=== PATIENT | female | born 1965 | race Caucasian/White ===

== ENCOUNTER 2020-09-25 17:06 | Emergency (ER) | payer BC, OTHER ==
[2020-09-25] MEDS ORDERED: HYDROCODONE/APAP 7.5/325 MG TAB ONE (18:22)
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
[2020-09-25 19:36] VITALS: O2SAT 100
[2020-09-25 19:38] VITALS: BP 116/64
[2020-09-25 19:44] VITALS: TEMP 97.7
== END 2020-09-25 19:19 | disposition home or self-care (01) ==
LOC: ER 17:06
DX: R51.9 Headache, unspecified (principal); M54.2 Cervicalgia; M25.552 Pain in left hip; V43.62XA Car passenger injured in collision with other type car in traffic accident, initial encounter; F17.210 Nicotine dependence, cigarettes, uncomplicated
CPT/HCPCS: 70450; 71250; 72125; 99284

== ENCOUNTER 2021-05-08 17:15 | Emergency (ER) | payer OTHER ==
[2021-05-08 18:51] LABS: Absolute Lymphocytes (CBC) 2.6 K/uL (0.7-4.9); Hematocrit 38.4 % (36.0-45.0); Lymphocytes % 32.4 % (15.3-44.8); MPV 8.3 fL (7.6-11.3); RBC Red Blood Cell Count 4.12 M/uL (3.86-4.86)
[2021-05-08 20:10] LABS: ALT/SGPT 22 U/L (12-78); AST/SGOT 13 U/L (15-37); Albumin 3.8 g/dL (3.4-5.0); Alkaline Phosphatase 69 U/L (45-117); BUN Blood Urea Nitrogen 13 mg/dL (7-18); Bicarbonate 24 mmol/L (21-32); Bilirubin Direct < 0.1 mg/dL (0-0.2); Bilirubin Total 0.5 mg/dL (0.2-1.0); Glucose Level 113 mg/dL (74-106); Lipase 127 U/L (73-393); Potassium 3.6 mmol/L (3.5-5.1); Protein, Total 7.1 g/dL (6.4-8.2); Sodium Level 139 mmol/L (136-145)
--- NOTE | 2021-05-08 20:48 | RAD REPORT ---
EXAM DESCRIPTION: CT - Abdomen Pelvis W Contrast - 05/08/2021 8:24 pm CLINICAL HISTORY: Abdominal pain COMPARISON: 2017 TECHNIQUE: Computed axial tomography of the abdomen pelvis was obtained. 100 cc Isovue-300 was admin istered intravenously. Oral contrast was not requested which limits evaluation of bowel. All CT scans are performed using dose optimization technique as appropriate and may include automated exposure control or mA/KV adjustment according to patient size. FINDINGS: The liver, spleen, pancreas, adrenal and left kidney appear unremarkable. Small right renal cyst. There is no evidence of diverticulitis. Normal appendix. No adnexal mass IMPRESSION: No acute abnormality is displayed.
--- NOTE | 2021-05-08 20:54 | EDPHYS ---
Physician Documentation [facility] Name: Gris Salgado Age: 55 yrs Sex: Female : 1965 Arrival Date: 05/08/2021 Time: 17:20 Bed 15 Private MD: ED Physician Drew Max HPI: 05/08 18:14 This 55 yrs old Female presents to ER via Ambulatory with complaints of Hernia. kb 18:14 The patient presents with abdominal pain right lower quadrant. Onset: The kb symptoms/episode began/occurred yesterday. The symptoms do not radiate. Associated signs and symptoms: Pertinent positives: nausea, Pertinent negatives: diarrhea, fever, vomiting. The symptoms are described as constant. Modifying factors: The symptoms are alleviated by nothing, the symptoms are aggravated by nothing. Severity of pain: At its worst the pain was moderate in the emergency department the pain is unchanged. The patient has not experienced similar symptoms in the past. The patient has not recently seen a physician. Pt states she has had RLQ pain since yesterday. States she was reading about it online and believes it is a strangulated hernia. Denies history of hernia. Reports nausea. Denies vomiting, diarrhea, fever. . 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 - Social history:: Smoking status: Patient reports the use of cigarette tobacco products, smokes one-half pack cigarettes per day. ROS: 18:14 Constitutional: Negative for fever, chills, and weight loss. kb 18:14 Abdomen/GI: Positive for abdominal pain, nausea, Negative for vomiting, diarrhea. 18:14 All other systems are negative. Exam: 18:14 Constitutional: This is a well developed, well nourished patient who is awake, alert, kb and in no acute distress. Head/Face: Normocephalic, atraumatic. ENT: Moist Mucous membranes Cardiovascular: Regular rate and rhythm with a normal S1 and S2. No gallops, murmurs, or rubs. No pulse deficits. Respiratory: Respirations even and unlabored. No increased work of breathing. Talking in full sentences Skin: Warm, dry with normal turgor. Normal color. MS/ Extremity: Pulses equal, no cyanosis. Neurovascular intact. Full, normal range of motion. Neuro: Awake and alert, GCS 15, oriented to person, place, time, and situation. Moves all extremities. Normal gait. Psych: Awake, alert, with orientation to person, place and time. Behavior, mood, and affect are within normal limits. 18:14 Abdomen/GI: Inspection: abdomen appears normal, Bowel sounds: normal, Palpation: soft, in all quadrants, moderate abdominal tenderness, in the right lower quadrant. Vital Signs: 17:54 BP 130 / 82; Pulse 76; Resp 17; Temp 99.2; Pulse Ox 99% ; Weight 70.31 kg; Height 5 ft. jl7 4 in. (162.56 cm); Pain 10/10; 19:11 BP 119 / 88 RA Supine (auto/reg); Pulse 56 MON; Resp 18 S; Temp 98.9(O); Pulse Ox 99% tk1 on R/A; Pain 8/10; 20:31 BP 125 / 80 LA Supine (auto/reg); Pulse 55 MON; Resp 18 S; Pulse Ox 100% on R/A; tk1 21:01 BP 115 / 81 RA Supine (auto/reg); Pulse 56 MON; Resp 16; Temp 98.2; Pulse Ox 100% ; tk1 Pain 3/10; 17:54 Body Mass Index 26.61 (70.31 kg, 162.56 cm) jl7 MDM: 18:01 Patient medically screened. kb 18:15 Data reviewed: vital signs, nurses notes. Data interpreted: Pulse oximetry: on room air kb is 99 %. Interpretation: normal. 20:53 Counseling: I had a detailed discussion with the patient and/or guardian regarding: the kb historical points, exam findings, and any diagnostic results supporting the discharge/admit diagnosis, lab results, radiology results, the need for outpatient follow up, a family practitioner, to return to the emergency department if symptoms worsen or persist or if there are any questions or concerns that arise at home. 05/08 18:04 Order name: Basic Metabolic Panel kb 05/08 18:04 Order name: CBC with Diff; Complete Time: 18:55 kb 05/08 18:04 Order name: Hepatic Function kb 05/08 18:04 Order name: Lipase; Complete Time: 20:12 kb 05/08 18:05 Order name: Basic Metabolic Panel; Complete Time: 20:12 EDMS 05/08 18:05 Order name: Liver (Hepatic) Function; Complete Time: 20:12 EDMS 05/08 18:04 Order name: IV Saline Lock; Complete Time: 18:41 kb 05/08 18:04 Order name: Labs collected and sent; Complete Time: 20:37 kb 05/08 18:04 Order name: CT Abd/Pelvis - IV Contrast Only; Complete Time: 20:53 kb 05/08 18:55 Order name: Labs - recollect needed: recollect green top; Complete Time: 20:37 bd Administered Medications: No medications were administered Disposition: 05/09 07:57 Co-signature as Attending Physician, Drew Max MD I agree with the assessment and kdr plan of care. Disposition Summary: 05/08/21 20:53 Discharge Ordered Location: Home kb Condition: Stable kb Diagnosis - Lower abdominal pain, unspecified kb Followup: kb - With: Emergency Department - When: As needed - Reason: Worsening of condition Followup: kb - With: Private Physician - When: 2 - 3 days - Reason: Recheck today's complaints, Continuance of care, Re-evaluation by your physician Discharge Instructions: - Discharge Summary Sheet kb - Abdominal Pain, Adult, [id number] kb Forms: - Medication Reconciliation Form kb - Thank You Letter kb - Antibiotic Education kb - Prescription Opioid Use kb Prescriptions: - Zofran 4 mg Oral Tablet - take 1 tablet by ORAL route every 6 hours As needed; 20 tablet; Refills: 0, kb Product Selection Permitted - Diclofenac Sodium 75 mg Oral tablet,delayed release (DR/EC) - take 1 tablet by ORAL route 2 times per day As needed; 30 tablet; Refills: 0, kb Product Selection Permitted Signatures: Dispatcher [employer] EDEboni Jc, KEEGAN FLOOR COVERER APPRENTICE-Lucina Stringer Kevin, MD MD kdr Leal, Jahala, RN RN jl7
--- NOTE | 2021-05-08 20:54 | ER ---
Nurse's Notes [facility] Name: Gris Salgado Age: 55 yrs Sex: Female : 1965 Arrival Date: 05/08/2021 Time: 17:20 Bed 15 Private MD: Diagnosis: Lower abdominal pain, unspecified Presentation: 05/08 17:54 Chief complaint: Patient states: Right sided abdominal pain, no hx of hernia but jl7 thinking that might be what it is. Coronavirus screen: At this time, the client does not indicate any symptoms associated with coronavirus-19. Ebola Screen: No symptoms or risks identified at this time. Initial Sepsis Screen: Does the patient meet any 2 criteria? No. Patient's initial sepsis screen is negative. Does the patient have a suspected source of infection? No. Patient's initial sepsis screen is negative. Risk Assessment: Do you want to hurt yourself or someone else? Patient reports no desire to harm self or others. Onset of symptoms is unknown. 17:54 Method Of Arrival: Ambulatory [facility] 17:54 Acuity: MANOJ 3 jl7 Triage Assessment: 17:56 General: Appears in no apparent distress. uncomfortable, Behavior is calm, cooperative, jl7 appropriate for age. Pain: Complains of pain in right lower quadrant Pain currently is 10 out of 10 on a pain scale. 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 - Social history:: Smoking status: Patient reports the use of cigarette tobacco products, smokes one-half pack cigarettes per day. Screenin:02 Abuse screen: Denies threats or abuse. Denies injuries from another. Nutritional cb5 screening: No deficits noted. Tuberculosis screening: No symptoms or risk factors identified. Fall Risk None identified. Assessment: 18:00 General: Appears comfortable, Behavior is calm, cooperative, appropriate for age. Pain: cb5 Complains of pain in abdomen and right lower quadrant. Neuro: No deficits noted. Cardiovascular: No deficits noted. Respiratory: No deficits noted. GI: Reports lower abdominal pain. : No deficits noted. EENT: No deficits noted. Derm: No deficits noted. Musculoskeletal: No deficits noted. 18:42 Reassessment: Patient and/or family updated on plan of care and expected duration. Pain cb5 level reassessed. 19:11 Reassessment: Green top tube collected and sent to lab after being notified of need. tk1 Patient tolerated well. General: Appears in no apparent distress. comfortable, well groomed, well developed, well nourished, Behavior is calm, cooperative, appropriate for age. Pain: Complains of pain in right lower quadrant Pain does not radiate. Pain currently is 8 out of 10 on a pain scale. Quality of pain is described as sharp, Pain began 1 day ago. Is intermittent, Alleviated by nothing. Neuro: No deficits noted. Level of Consciousness is awake, alert, obeys commands, Oriented to person, place, time, situation, Appropriate for age Public Address System Operator are equal bilaterally Moves all extremities. Full function Gait is steady, Speech is normal, Facial symmetry appears normal. Cardiovascular: No deficits noted. Respiratory: No deficits noted. Airway is patent Respiratory effort is even, unlabored, Respiratory pattern is regular, symmetrical. GI: Reports lower abdominal pain. : No deficits noted. No signs and/or symptoms were reported regarding the genitourinary system. EENT: No deficits noted. Derm: No deficits noted. No signs and/or symptoms reported regarding the dermatologic system. Musculoskeletal: No deficits noted. No signs and/or symptoms reported regarding the musculoskeletal system. 20:14 Reassessment: Patient to radiology via stretcher with tech for CT. tk1 20:28 Reassessment: Patient returned from CT in stable condition. tk1 21:01 Reassessment: D/C per MD order. Discharge/Prescription instructions given to patient. tk1 Verbalized understanding. Vital Signs: 17:54 BP 130 / 82; Pulse 76; Resp 17; Temp 99.2; Pulse Ox 99% ; Weight 70.31 kg; Height 5 ft. jl7 4 in. (162.56 cm); Pain 10/10; 19:11 BP 119 / 88 RA Supine (auto/reg); Pulse 56 MON; Resp 18 S; Temp 98.9(O); Pulse Ox 99% tk1 on R/A; Pain 8/10; 20:31 BP 125 / 80 LA Supine (auto/reg); Pulse 55 MON; Resp 18 S; Pulse Ox 100% on R/A; tk1 21:01 BP 115 / 81 RA Supine (auto/reg); Pulse 56 MON; Resp 16; Temp 98.2; Pulse Ox 100% ; tk1 Pain 3/10; 17:54 Body Mass Index 26.61 (70.31 kg, 162.56 cm) jl7 ED Course: 17:20 Patient arrived in ED. mr 17:56 Triage completed. jl7 17:56 Arm band placed on right wrist. jl7 17:58 Belkis Pro, RN is Primary Nurse. cb5 18:01 Eboni Lee FNP-C is PHCP. kb 18:01 Drew Max MD is Attending Physician. kb 18:01 No provider procedures requiring assistance completed. cb5 18:02 Call light in reach. Side rails up X 1. cb5 18:41 Liver (Hepatic) Function Sent. cb5 18:41 Basic Metabolic Panel Sent. cb5 18:41 Basic Metabolic Panel Sent. cb5 18:41 Hepatic Function Sent. cb5 18:41 CBC with Diff Sent. cb5 18:41 Lipase Sent. cb5 19:00 Report given to Wanda Renee cb5 19:11 Primary Nurse role handed off by Belkis Pro, RN cs9 19:11 Bed in low position. Call light in reach. Side rails up X 1. Pulse ox on. NIBP on. tk1 20:14 Thelma Banks is Primary Nurse. tk1 20:25 CT Abd/Pelvis - IV Contrast Only In Process Unspecified. EDMS 21:01 IV discontinued, intact, bleeding controlled, No redness/swelling at site. Pressure tk1 dressing applied. Administered Medications: No medications were administered Outcome: 20:53 Discharge ordered by . kb 21:01 Discharged to home ambulatory. tk1 21:01 Condition: stable 21:01 Discharge instructions given to patient, Instructed on discharge instructions, follow up and referral plans. medication usage, Demonstrated understanding of instructions, follow-up care, medications. 21:02 Patient left the ED. tk1 Signatures: Dispatcher [employer] Eboni Lee FNP-C FNP-Paulina Hernandez DoreenShe, RN RN jl7 Wanda Carter cs9 Thelma Banks tk1 Belkis Pro, RN RN cb5
[2021-05-08 21:28] VITALS: O2SAT 100
[2021-05-08 21:29] VITALS: BP 115/81; TEMP 98.2
== END 2021-05-08 21:02 | disposition home or self-care (01) ==
LOC: ER 17:15
DX: R10.31 Right lower quadrant pain (principal); E03.9 Hypothyroidism, unspecified; F17.210 Nicotine dependence, cigarettes, uncomplicated
CPT/HCPCS: 85025; 80048; 36415; 80076; 83690; 74177; 99284; Q9967